=== PATIENT | male | born 1980 | race Caucasian/White ===

== ENCOUNTER 2016-09-04 10:00 | Emergency (ER) | payer BC ==
[~2016-09-04] VITALS: Ht 172.7 cm; Wt 88.5 kg
[~2016-09-04 10:00] MED LIST: ASPI-390 PO; PENI-82 PO; TRAM-10 PO
[2016-09-04 10:18] VITALS: TEMP 37; Ht 172.7 cm; Wt 88.5 kg
[2016-09-04] MEDS ORDERED: KETOROLAC TROMETHAMINE 60 MG/2 ML VIAL IM STA (10:28)
--- NOTE | 2016-09-04 11:33 | DIAGNOSTIC IMAGING REPORT ---
RIGHT RIBS UNILATERAL WITH PA CHEST CLINICAL HISTORY: Right rib pain following injury. COMPARISON STUDY: Chest radiograph November 25, 2014. FINDINGS: There is no pneumothorax or pleural effusion. Lungs are clear. Cardiac size is normal. Mediastinal contours are normal. There is a possible acute nondisplaced fracture of the lateral right fifth rib. IMPRESSION: No pneumothorax. Possible acute nondisplaced fracture of the lateral right fifth rib. Electronically signed by: Damian Damon M.D. 09/04/2016 11:31 AM Dictated Date/Time: 09/04/2016 11:28 AM
[2016-09-04] MEDS ORDERED: HYDR-5688 PO (11:39)
--- NOTE | 2016-09-04 11:39 | EMERGENCY ROOM VISIT NOTE ---
ED Visit Note First contact with patient: 10:23 CHIEF COMPLAINT: Right rib injury one hour ago HISTORY OF PRESENT ILLNESS: Patient is an otherwise healthy 36-year-old white male who presents to the emergency department for evaluation of right anterior lateral rib pain. He states that about an hour ago at his son's baseball game, he leaned over a fence, to tack picker a ball, and it felt and heard a pop in his right ribs. He has broken ribs previously and states that this feels similar. Pain is pinpoint in the right anterior lateral ribs, worse with movement, coughing or deep breathing. He rates his pain an 8/10. He did not take any medications, nor perform any interventions for his symptoms. Denies shortness of breath or coughing up blood. He denies any other injuries. REVIEW OF SYSTEMS: Review of systems as per HPI. All other systems reviewed were negative. At least 6 systems reviewed. PMH: Electronic medical records are reviewed and summarized as above/below. See Problem List. SOCIAL HISTORY: Patient lives at home. Smoker. PHYSICAL EXAM: Vital Signs: Reviewed Nurse's notes. CONSTITUTIONAL: Patient is an uncomfortable appearing 36-year-old white male who is awake and alert and in mild distress due to his rib discomfort. LUNGS: Clear to auscultation and breath sounds equal, no wheezes, rales, or rhonchi. HEART: Heart sounds are regular without murmurs, ectopy, gallop, or rub. CHEST: Examination of the right chest does not demonstrate any obvious deformity. No ecchymosis, swelling or fracture crepitus appreciated. He is tender over the anterior ribs in the midclavicular line. No flail segment or subcutaneous emphysema noted. ABDOMEN: Bowel sounds are present. Abdomen is soft, nontender and nondistended. No right upper quadrant pain. NEUROLOGICAL: Alert, oriented, and cooperative. Cranial nerves, sensation and strength grossly intact. Pupils round, equal, and react to light, EOMs are full. EMERGENCY DEPARTMENT COURSE: Patient was medicated with Toradol 60 mg IM. Rib x -rays were obtained. There is a possible acute nondisplaced fracture of the lateral right fifth rib. Conservative care measures were discussed. Patient has had rib fractures previously, and is familiar with expected management. He was given a small prescription for Beulah for pain. He was encouraged perform deep breathing exercises. I do not suspect pneumothorax, pleural effusion or solid organ injury. Patient was reviewed in the [facility] [address] Prescription Drug Monitoring Program, and there were no red flags noted. Medical Reconciliation: I attest that I have personally reviewed the patient's current medication list. Blood pressure screening: Patient was found to have slightly elevated blood pressure due to circumstances upon initial vital signs, repeat BP was normal. I do not believe that the patient requires hypertension monitoring. RIGHT RIBS UNILATERAL WITH PA CHEST CLINICAL HISTORY: Right rib pain following injury. COMPARISON STUDY: Chest radiograph November 25, 2014. FINDINGS: There is no pneumothorax or pleural effusion. Lungs are clear. Cardiac size is normal. Mediastinal contours are normal. There is a possible acute nondisplaced fracture of the lateral right fifth rib. IMPRESSION: No pneumothorax. Possible acute nondisplaced fracture of the lateral right fifth rib. Problem List Medical Problems: (1) Acute pharyngitis Status: Resolved (2) Back strain Status: Resolved (3) Back strain Status: Resolved (4) Back strain Status: Resolved (5) Dental caries Status: Chronic (6) Dentalgia Status: Resolved (7) Hand contusion Status: Resolved (8) Left rib fracture Status: Resolved (9) Left rib fracture Status: Resolved (10) Lumbago Status: Chronic (11) Migraine Status: Resolved (12) Migraine Status: Chronic (13) Odontalgia Status: Resolved (14) Radicular low back pain Status: Resolved Current/Historical Medications Scheduled PRN Hydrocodone/Acetaminophen 5MG/325MG (Beulah 5MG/325MG), 1-2 TABLETS PO Q4 PRN for Pain Allergies Coded Allergies: No Known Allergies (Unverified , 09/04/16) Vital Signs Date Time Temp Pulse Resp B/P (MAP) Pulse Ox O2 Delivery O2 Flow Rate FiO2 09/04/16 11:56 67 20 118/84 99 09/04/16 10:18 37.0 84 18 138/93 95 Room Air Medications Administered Medications (Trade) Dose Ordered Sig/Loni Route Start Time Stop Time Status Last Admin Dose Admin Ketorolac Tromethamine (Toradol Inj) 60 mg NOW STAT IM 09/04/16 10:28 09/04/16 10:29 DC 09/04/16 10:56 60 MG Departure Information Impression Primary Impression: Right rib fracture Prescriptions Hydrocodone/Acetaminophen 5MG/325MG (Beulah 5MG/325MG) Tab 1-2 TABLETS PO Q4 Y for Pain, #20 TAB For Initial Treatment Prov: Nohemi Sanz PA 09/04/16 Referrals No Doctor, Assigned (PCP) Patient Instructions My [facility] Additional Instructions Hydrocodone/Acetaminophen (Beulah) 5/325 mg: Take 1-2 pills every four hours for breakthrough pain. Avoid alcohol, operating machinery or dangerous equipment, working on ladders or roofs, DRIVING, or situations where being under the influence may be dangerous. It is recommended to use an [id number] stool softener such as Colace, 100mg twice daily while taking this medication to avoid constipation. Apply ice to ribs for swelling and pain. Do deep breathing and coughing exercises as instructed. Limit activities until ribs heal. Ibuprofen(Motrin, Advil) may be used for fever or pain. Use 600mg every six hours as needed. Take with food. Avoid using more than 2400mg in a 24 hour period. Do not use 2400mg per day for more than three consecutive days without physician direction. Prolonged inappropriate use can lead to stomach upset or ulcers. (AND/OR) Acetaminophen(Tylenol) may be used for fever or pain. Use 1000mg every six hours as needed. Avoid using more than 3000mg in a 24 hour period. Follow up with your family doctor as needed.
[2016-09-04 11:56] VITALS: BP 118/84; PULSE 67; O2SAT 99
== END 2016-09-04 11:57 | disposition home or self-care (01) ==
LOC: C.EDB 10:01 → C.EDD 11:57
DX: S22.31XA Fracture of one rib, right side, initial encounter for closed fracture (principal); X50.9XXA Other and unspecified overexertion or strenuous movements or postures, initial encounter; F17.200 Nicotine dependence, unspecified, uncomplicated

== ENCOUNTER 2016-12-18 23:25 | Emergency (ER) | payer OTHER, BC ==
[~2016-12-18] VITALS: Ht 172.7 cm; Wt 85.8 kg
[~2016-12-18 23:25] MED LIST changes: -ASPI-390 PO; +HYDR-5688 PO; -PENI-82 PO; -TRAM-10 PO
[2016-12-18 23:30] VITALS: TEMP 36.9; Ht 172.7 cm; Wt 85.8 kg
[2016-12-19 01:14] VITALS: BP 109/69; PULSE 61; O2SAT 97
--- NOTE | 2016-12-19 01:14 | EMERGENCY ROOM VISIT NOTE ---
History First contact with patient: 23:33 Chief Complaint: RIB PAIN Stated Complaint: BROKEN RIBS, HURT BAD, WORKERS COMP History of Present Illness The patient is a 36 year old male who presents to the Emergency Room with complaints of right-sided rib pain. The patient states that he was at work and leaned over a bar to reach for something when he felt a crunching sensation in the front of his ribs. He reports he has had pain since then. He rates his discomfort a 7/10. He reports he has had fractures in the ribs in the past. He denies any difficulty breathing. Review of Systems A complete 10 point review of systems was reviewed with the patient with pertinent positives and negatives as per history of present illness. All else were negative. Past Medical/Surgical History Medical Problems: (1) Acute pharyngitis (2) Back strain (3) Back strain (4) Back strain (5) Dental caries (6) Dentalgia (7) Hand contusion (8) Left rib fracture (9) Left rib fracture (10) Lumbago (11) Migraine (12) Migraine (13) Odontalgia (14) Radicular low back pain Family History No pertinent family history Social History Smoking Status: Current Every Day Smoker Alcohol Use: other Marital Status: in relationship Housing Status: lives with significant other Occupation Status: employed Current/Historical Medications No Active Prescriptions or Reported Meds Physical Exam Vital Signs Date Time Temp Pulse Resp B/P (MAP) Pulse Ox O2 Delivery O2 Flow Rate FiO2 12/19/16 01:14 61 18 109/69 97 Room Air 12/18/16 23:30 36.9 74 18 141/89 98 Room Air Physical Exam VITALS: Vitals are noted on the nurse's note and reviewed by myself. Vital signs stable. GENERAL: This is a 36-year-old male, in no acute distress, nondiaphoretic, well- developed well-nourished. SKIN: The skin was without erythema, edema, or bruising. HEART: Regular rate and rhythm without murmurs gallops or rubs. LUNGS: Clear to auscultation bilaterally without wheezes, rales or rhonchi. CHEST: There is reproducible tenderness over the anterior right lower ribs. No fracture crepitus. NEURO: Patient was alert and oriented to person place and time. Medical Decision & Procedures ER Provider Diagnostic Interpretation: CHEST W/ UNILATERAL RIBS: No obvious fractures identified. No pneumothorax or hemothorax. Medical Decision Differential diagnosis includes fracture, contusion, sprain, pneumothorax, hemothorax, among others. The patient is a 36-year-old male who presents today complaining of right-sided rib pain. There is no significant trauma to the area. X-rays were reviewed by myself and my attending and do not show any obvious fractures. Patient was informed of these findings. He was reassured and conservative measures were discussed. He verbalized understanding of my assessment and treatment plan was discharged home in good condition. Medication Reconcilliation Current Medication List: was personally reviewed by me Blood Pressure Screening Patient's blood pressure: Normal blood pressure Impression Primary Impression: Rib pain on right side Departure Information Dispostion Home / Self-Care Condition GOOD Prescriptions No Active Prescriptions or Reported Meds Referrals No Doctor, Assigned (PCP) Patient Instructions My [facility] Additional Instructions You have been treated in the Emergency Department for a Rib injury. X-ray did not show any obvious broken ribs. For pain control, you can use the following fqic-zwi-blmllkl medicines (if >12 yo): - Regular strength (325mg/tab) Tylenol (acetaminophen) 2 tabs every 4-6 hours as needed. Do not exceed 12 tablets in a 24 hour period. Avoid taking more than 4 grams (4000 mg) of Tylenol per day. This includes any other sources of acetaminophen you may take on a regular basis. - Regular strength (200 mg/tab) Advil (ibuprofen) 1-2 tabs every 4-6 hours as needed. Do not exceed a dose of 3200 mg per day. If this is an acute injury, ice can be applied to the area of pain for the first 3 days to help decrease pain and inflammation. After the first 3 days, a heating pad can be used over the area for continued soothing relief. To minimize your discomfort, you can hug a pillow while coughing or sneezing. Additionally, you should continue to force yourself to take nice, deep breaths. Full expansion of the lungs is necessary to prevent the accumulation of fluid in the lung tissue and development of pneumonia. You should schedule a follow-up appointment in 2-3 days with your Primary Care Provider for further evaluation and treatment of your pain. Return to the Emergency Department if your current symptoms worsen despite treatment course outlined above, or if you develop any of the following symptoms : intractable pain despite aforementioned treatment course, development of a wet cough, bloody cough, fever, chills, or increased shortness of breath.
--- NOTE | 2016-12-19 06:21 | DIAGNOSTIC IMAGING REPORT ---
R RIBS UNILATERAL WITH PA CHEST CLINICAL HISTORY: right rib pain, injury pain COMPARISON STUDY: None FINDINGS: Cortical fractures anterior fourth, seventh, ninth, and 10th ribs. Lungs are clear. No evidence pneumothorax. IMPRESSION: Nondisplaced cortical fractures anterior right fourth, seventh, ninth, and 10th ribs. No evidence pneumothorax. The above report was generated using voice recognition software. It may contain grammatical, syntax or spelling errors. Electronically signed by: Gustavo Mendez M.D. 12/19/2016 6:19 AM Dictated Date/Time: 12/19/2016 6:18 AM
== END 2016-12-19 01:18 | disposition home or self-care (01) ==
LOC: C.EDB 23:26 → C.EDA 12-19 01:18
DX: R07.81 Pleurodynia (principal); X50.0XXA Overexertion from strenuous movement or load, initial encounter; Y99.0 Civilian activity done for income or pay; Y92.89 Other specified places as the place of occurrence of the external cause; F17.210 Nicotine dependence, cigarettes, uncomplicated

== ENCOUNTER 2017-05-30 02:39 | Emergency (ER) | payer OTHER ==
[~2017-05-30] VITALS: Ht 172.7 cm; Wt 85.2 kg
[2017-05-30 02:42] VITALS: TEMP 37.4; Ht 172.7 cm; Wt 85.2 kg
[2017-05-30] MEDS ORDERED: IBUPROFEN 600 MG TAB PO STA (03:00)
--- NOTE | 2017-05-30 03:06 | EMERGENCY ROOM VISIT NOTE ---
ED Visit Note First contact with patient: 02:48 CHIEF COMPLAINT: Foot pain HISTORY OF PRESENT ILLNESS: This 37 yo patient presents to the emergency department complaining of swelling and pain in the right foot at rest and worse with weight bearing. The patient kicked down the door as his brother in law overdosed in the bathroom. The patient rates the pain as throbbing and 5/ 10. The patient has had nothing for relief of the pain. The patient is able to walk. No numbness or weakness. No ankle pain. There are no lacerations of the foot. The patient is able to move all of their toes and their ankle without pain. no previous fracture to this foot. REVIEW OF SYSTEMS: GENERAL: A 6 system review of systems was completed with positives and pertinent negatives in the HPI. ALLERGIES: None MEDICATIONS: Reviewed PMH: Medical Problems: (1) Acute pharyngitis Status: Resolved (2) Back strain Status: Resolved (3) Back strain Status: Resolved (4) Back strain Status: Resolved (5) Dental caries Status: Chronic (6) Dentalgia Status: Resolved (7) Hand contusion Status: Resolved (8) Left rib fracture Status: Resolved (9) Left rib fracture Status: Resolved (10) Lumbago Status: Chronic (11) Migraine Status: Resolved (12) Migraine Status: Chronic (13) Odontalgia Status: Resolved (14) Radicular low back pain Status: Resolved (15) Rib pain on right side Status: Resolved (16) Right rib fracture Status: Resolved SOCIAL HISTORY: No drug use PHYSICAL EXAM: Vital Signs: Reviewed Nurse's notes, vital signs mildly hypertensive. GENERAL: Pleasant male anxious appearing, in no acute distress, but appears in pain, well-developed, well-nourished. MUSCULOSKELATAL: There is no visual deformity of the right foot. There is no erythema no ecchymosis. There is no warmth. There is tenderness and swelling over the medial aspect of the right foot. There is no tenderness over the lateral or medial malleolus. No tenderness of the tib/fib. The range of motion of the right foot is not limited secondary to pain. There is no tenderness over the plantar fascia. The skin is intact and there are no lacerations or puncture wounds. Dorsalis pedis pulse 2+. Capillary refill less than 2 seconds. EMERGENCY DEPARTMENT COURSE: I examined the patient. An X-ray of the right foot was reviewed by myself and my attending and reveals no fracture. The patient was placed in a postop shoe and instructed on the use of crutches. Patient was advised if symptoms persist a follow-up with orthopedics in a few days or here in the ER sooner for severe pain, numbness, tingling, worsening signs or symptoms or as needed. The patient was discharged home in good condition. Blood pressure is elevated most likely situational. DIAGNOSIS: Right foot sprain TREATMENT: As below Problem List Medical Problems: (1) Acute pharyngitis Status: Resolved (2) Back strain Status: Resolved (3) Back strain Status: Resolved (4) Back strain Status: Resolved (5) Dental caries Status: Chronic (6) Dentalgia Status: Resolved (7) Hand contusion Status: Resolved (8) Left rib fracture Status: Resolved (9) Left rib fracture Status: Resolved (10) Lumbago Status: Chronic (11) Migraine Status: Resolved (12) Migraine Status: Chronic (13) Odontalgia Status: Resolved (14) Radicular low back pain Status: Resolved (15) Rib pain on right side Status: Resolved (16) Right rib fracture Status: Resolved Current/Historical Medications No Active Prescriptions or Reported Meds Allergies Coded Allergies: No Known Allergies (Unverified , 05/30/17) Vital Signs Date Time Temp Pulse Resp B/P (MAP) Pulse Ox O2 Delivery O2 Flow Rate FiO2 05/30/17 02:42 37.4 111 18 144/93 97 Room Air Departure Information Prescriptions No Active Prescriptions or Reported Meds Referrals No Doctor, Assigned (PCP) Patient Instructions My [facility]
[2017-05-30 03:20] VITALS: BP 141/91; PULSE 91; O2SAT 95
--- NOTE | 2017-05-30 06:46 | DIAGNOSTIC IMAGING REPORT ---
R FOOT MIN 3 VIEWS ROUTINE HISTORY: 37 years-old Male pain acute right foot pain status post kicking injury COMPARISON: Right heel radiographs 05/20/2017 TECHNIQUE: 3 views of the right foot FINDINGS: 3 mm corticated bone fragment is noted adjacent to the medial joint space of the first MTP joint suggesting accessory ossicle or remote avulsion fracture. Bipartite medial hallux sesamoid. Moderate sized plantar enthesophyte about the calcaneus. Mild dorsal spurring about the talus and navicular. No acute fracture, subluxation or opaque foreign body. No stress fracture. Mild medial forefoot soft tissue swelling. IMPRESSION: 1. Mild medial forefoot soft tissue swelling without acute fracture or subluxation. 2. Moderate plantar enthesophyte about the calcaneus. The above report was generated using voice recognition software. It may contain grammatical, syntax or spelling errors. Electronically signed by: Nolan Vasquez M.D. 05/30/2017 6:45 AM Dictated Date/Time: 05/30/2017 6:42 AM
== END 2017-05-30 03:29 | disposition home or self-care (01) ==
LOC: C.EDB 02:40
DX: S93.601A Unspecified sprain of right foot, initial encounter (principal); Z87.828 Personal history of other (healed) physical injury and trauma; W22.8XXA Striking against or struck by other objects, initial encounter

== ENCOUNTER 2021-05-16 12:47 | Observation (INO) ==
[2021-05-16] MEDS ORDERED: ONDANSETRON INJ 2 MG/ML 2 ML VIAL IV STA (13:22)
[2021-05-16] MEDS ORDERED: MoRPHine SULFATE 4 MG/ML 1 ML CARP\\VIAL IV STA ×3 (13:22→16:31)
[2021-05-16 13:42] LABS: Basophils # (auto) 0.04 K/uL (0-0.2); Basophils % (auto) 0.3 %; Eosinophils # (auto) 0.18 K/uL (0-0.5); Eosinophils % (auto) 1.3 %; Hematocrit (blood only) 47.5 % (42-52); Hemoglobin 16.6 g/dL (14.0-18.0); Immature Granulocytes # (auto) 0.03 K/uL (0.00-0.02); Immature Granulocytes % (auto) 0.2 %; Lymphocytes # (auto) 2.06 K/uL (1.2-3.4); Lymphocytes % (auto) 15.4 %; Mean Corpuscular Hemoglobin 33.2 pg (25-34); Mean Corpuscular Hgb Conc 34.9 g/dL (32-36); Mean Platelet Volume 9.7 fL (7.4-10.4); Monocytes # (auto) 1.06 K/uL (0.11-0.59); Monocytes % (auto) 7.9 %; Neutrophils # (auto) 10.04 K/uL (1.4-6.5); Neutrophils % (auto) 74.9 %; Platelet Count 419 K/uL (130-400); RDW Coefficient of Variation 12.5 % (11.5-14.5); White Blood Count 13.41 K/uL (4.8-10.8)
--- NOTE | 2021-05-16 13:48 | Emergency Department Note ---
History of Present Illness General Chief complaint: Leg Injury/Pain Stated complaint: LEG INJURY Time Seen by Provider: 05/16/21 13:06 History of Present Illness Maximum Pain Intensity: 9 This 41-year-old male presents to the ED by [facility] ambulance, for a right ankle injury. Patient states he was attempting to move a refrigerator onto his front porch. A snow squad had just come through. He states he slipped on the snow, and his foot went underneath the refrigerator bev. The refrigerator then fell onto his leg. He felt a snap and had immediate onset of pain. He states his foot was pointing the wrong way. He did reach down and reduce his own ankle. No prior history of significant ankle or foot injury. He denies any current numbness or tingling. He is currently splinted by EMS. He denies any pain at the knee, hip, or left leg. He last ate at 10 AM. Patient states he does have a history of opioid dependence and abuse. He would prefer as few narcotics as possible. His family accompanies him today. Home Medications Medication Instructions Recorded Confirmed Type No Known Home Medications 03/25/19 05/16/21 History aspirin 81 mg tablet,delayed 81 mg PO BID #60 tab 05/17/21 Rx release oxycodone-acetaminophen 5 mg-325 1 tab PO .Q4h-6h PRN #30 tab MDD 6 05/17/21 Rx mg tablet (Endocet) Allergies Allergy/AdvReac Type Severity Reaction Status Date / Time No Known Allergies Allergy Unverified 05/16/21 14:02 Past Med/Surg History Medical History Acute pharyngitis Back strain Dentalgia History of opioid abuse Left rib fracture Radicular low back pain Surgical History No pertinent past surgical history Family History Other No pertinent family history Social History (Updated 05/16/21 @ 13:48 by Yaya Santiago PA-C) Smoking Status: Former smoker Hx Alcohol Use: Yes Alcohol type: hard liquor Hx Substance Use: Yes Prescribed Medications: Former Misuse of Rx Meds Preferred Language: Thai Communication Ability: Effective Covered Buckle Assembler Required: No Beliefs That Will Affect Care: None Current Living Situation: Significant Other Other Information That Helps Us Care for You: No Feels Safe at Home: Yes Safety Concerns: Feels Safe At This Time Assistive Devices: None Review of Systems A total of 10 systems reviewed and were otherwise negative Physical Exam Vital Signs Vital Signs - 24 hr 05/16/21 14:00 05/16/21 14:30 05/16/21 15:00 Temperature Temperature Source Pulse Rate 114 H 110 H 113 H Pulse Rate [Apical] Pulse Rate from SpO2 Sensor 115 H 104 H 112 H Pulse Rhythm [Apical] Respiratory Rate 24 17 18 Respiratory Effort / Characteristics Respiratory Depth Respiratory Pattern Blood Pressure 167/103 H 156/107 H 154/103 H Blood Pressure [Right Arm] Blood Pressure Mean 124 123 120 Blood Pressure Mean [Right Arm] Blood Pressure Position [Right Arm] Pulse Oximetry 97 96 93 Oxygen Delivery Method Room Air Oxygen Flow Rate 05/16/21 15:30 05/16/21 16:00 05/16/21 16:30 Temperature Temperature Source Pulse Rate 110 H 106 H 115 H Pulse Rate [Apical] Pulse Rate from SpO2 Sensor 107 H 105 H 115 H Pulse Rhythm [Apical] Respiratory Rate 18 18 18 Respiratory Effort / Characteristics Respiratory Depth Respiratory Pattern Blood Pressure 156/94 H 147/107 H 155/108 H Blood Pressure [Right Arm] Blood Pressure Mean 114 120 123 Blood Pressure Mean [Right Arm] Blood Pressure Position [Right Arm] Pulse Oximetry 91 92 95 Oxygen Delivery Method Oxygen Flow Rate 05/16/21 17:00 05/16/21 17:53 05/16/21 21:35 Temperature 36.4 C L Temperature Source Temporal Artery Scan Pulse Rate 106 H 104 H Pulse Rate [Apical] 126 H Pulse Rate from SpO2 Sensor 109 H Pulse Rhythm [Apical] Regular Respiratory Rate 17 18 23 Respiratory Effort / Characteristics Non-Labored Spontaneous Respiratory Depth Normal Respiratory Pattern Regular Blood Pressure 165/103 H 157/105 H Blood Pressure [Right Arm] 150/98 H Blood Pressure Mean 123 Blood Pressure Mean [Right Arm] 115 Blood Pressure Position [Right Arm] Lying Pulse Oximetry 92 94 99 Oxygen Delivery Method Room Air Oxymask Oxygen Flow Rate 6 General: Well-developed, well-nourished, obese middle-aged white male, in no acute distress. Obvious discomfort. Laying on the bed. Alert and oriented. Skin: Warm and dry with good turgor. No rashes. Patient does have edema and ecchymosis present at his right ankle. He does have some puckering medially, where it appears he had some tenting on the skin. There are no open wounds. Heart: Heart RRR. No MGR. Peripheral pulses are 2+. Lungs: Lungs are clear to auscultation. No crackles rhonchi or wheezing. Good air movement. The patient is able to take a deep breath. Abdomen: Abdomen was inspected, auscultated, and palpated. Obese. Bowel sounds present x 4. Soft, nontender to palpation. No hepato-splenomegaly. No masses noted. No rebound. Musculoskeletal: Patient has no discomfort with palpation over his left leg, right hip, right thigh, or right knee. No pain with palpation over his proximal tibia/fibula. He does have pain with palpation of the distal fibula and tibia. His foot appears to have a slight malrotation externally. There is a visible offset on his tibia just above the medial malleolus. He has no discomfort with palpation over his hindfoot, midfoot, or forefoot. Intact motor function of the toes. Ankle range of motion was not attempted. Neurologic: Gross sensation is intact across the right leg and foot by soft touch. Peripheral pulses are 2+. Capillary fill is equal for each of the digits of the right foot. Procedures Free Text Procedures Patient is right ankle was splinted using web roll, Ortho-Glass, and Giles wraps. This was done under my direct supervision, with realignment of his ankle performed by me. Splinting was done with the assistance of the ED techs. Neurovascular status of the foot and toes was checked before and after splint placement and remained intact. Course Administered Medications Discontinued Medications Acetaminophen (Acetaminophen 500 Mg Tab) 1,000 mg PO Q8H [facility] Stop: 06/16/21 00:00 Last Admin: 05/17/21 09:12 Dose: 1,000 mg Documented by: [id number] Admin: 05/16/21 23:07 Dose: 1,000 mg Documented by: [id number] Aspirin (Aspirin 81 Mg Ectab) 81 mg PO BID [facility] Stop: 06/16/21 08:59 Last Admin: 05/17/21 09:12 Dose: 81 mg Documented by: [id number] Docusate Sodium (Docusate Sodium 100 Mg Cap) 100 mg PO BID [facility] Stop: 06/16/21 08:59 Last Admin: 05/17/21 09:12 Dose: 100 mg Documented by: [id number] Hydromorphone HCl (Hydromorphone Inj 0.5 Mg/0.5 Ml Syr) 0.5 mg IV Q4H PRN PRN Reason: Pain or Pre PT Stop: 05/30/21 22:29 Last Admin: 05/17/21 07:11 Dose: 0.5 mg Documented by: [id number] Admin: 05/17/21 03:17 Dose: 0.5 mg Documented by: [id number] Cefazolin Sodium (Ancef 3000mg) 72.5 mls @ 130 mls/hr IV PREOP [facility]AN[facility]; Protocol Stop: 05/16/21 23:59 Last Infusion: 05/16/21 19:10 Dose: 0 mls/hr Documented by: [id number] Admin: 05/16/21 19:05 Dose: 130 mls/hr Documented by: [id number] Sodium Chloride (Nss 1000ml) 1,000 mls @ 100 mls/hr IV .Q10H [facility] Stop: 05/17/21 06:00 Last Infusion: 05/17/21 07:20 Dose: 0 mls/hr Documented by: [id number] Admin: 05/16/21 23:02 Dose: 100 mls/hr Documented by: [id number] Cefazolin Sodium (Ancef 2000mg) 2,000 mg in 15 mls @ 3.75 mls/min IV Q8H [facility]; Protocol Stop: 05/17/21 11:48 Last Admin: 05/17/21 11:42 Dose: Not Given Documented by: [id number] Admin: 05/17/21 03:18 Dose: 3.75 mls/min Documented by: [id number] Morphine Sulfate (Morphine Sulfate 4 Mg/Ml 1 Ml Carp\Vial) 4 mg IV NOW STA Stop: 05/16/21 13:23 Last Admin: 05/16/21 13:33 Dose: 4 mg Documented by: [id number] Morphine Sulfate (Morphine Sulfate 4 Mg/Ml 1 Ml Carp\Vial) 4 mg IV NOW STA Stop: 05/16/21 14:45 Last Admin: 05/16/21 14:54 Dose: 4 mg Documented by: [id number] Morphine Sulfate (Morphine Sulfate 4 Mg/Ml 1 Ml Carp\Vial) 4 mg IV NOW STA Stop: 05/16/21 16:32 Last Admin: 05/16/21 16:36 Dose: 4 mg Documented by: [id number] Multivitamins (Multivitamin Tab) 1 tab PO QAM [facility] Stop: 06/16/21 08:59 Last Admin: 05/17/21 09:12 Dose: 1 tab Documented by: [id number] Ondansetron HCl (Ondansetron Inj 2 Mg/Ml 2 Ml Vial) 4 mg IV NOW STA Stop: 05/16/21 13:23 Last Admin: 05/16/21 13:33 Dose: 4 mg Documented by: [id number] Ondansetron HCl (Ondansetron Inj 2 Mg/Ml 2 Ml Vial) 4 mg IV ONCE PRN PRN Reason: PACU Use Only-Nausea/Vomiting Stop: 05/17/21 02:10 Last Admin: 05/16/21 21:41 Dose: 4 mg Documented by: [id number] Oxycodone HCl (Oxycodone Hcl Ir 5 Mg Tab (Immediate Release)) 5 - 10 mg PO Q4H PRN PRN Reason: Pain or Pre PT Stop: 05/30/21 22:29 Last Admin: 05/17/21 09:11 Dose: 10 mg Documented by: [id number] Admin: 05/17/21 05:21 Dose: 10 mg Documented by: [id number] Admin: 05/17/21 01:09 Dose: 10 mg Documented by: [id number] Medical Decision Making Differential Diagnosis Ankle fracture, ankle dislocation, ligament disruption, contusion, lower leg fracture, knee ligament disruption Medical Records Attestation: I reviewed the patient's medical records. Home Medications Current Medication List: was personally reviewed by me Laboratory Data CBC and PRP were obtained. Mild elevation in white count at 13.4. PRP is entirely unremarkable. Covid test obtained today is negative. Result diagrams: 05/17/21 07:35 05/17/21 07:35 Lab Results 05/16/21 05/16/21 05/16/21 Range/Units 13:28 13:30 13:30 WBC 13.41 H (4.8-10.8) K/uL RBC 5.00 (4.7-6.1) M/uL Hgb 16.6 (14.0-18.0) g/dL Hct 47.5 (42-52) % MCV 95.0 (80-100) fL MCH 33.2 (25-34) pg MCHC 34.9 (32-36) g/dL RDW Std Deviation 43.0 (36.4-46.3) fL RDW Coeff of Edelmira 12.5 (11.5-14.5) % Plt Count 419 H (130-400) K/uL MPV 9.7 (7.4-10.4) fL Immature Gran % (Auto) 0.2 % Neut % (Auto) 74.9 % Lymph % (Auto) 15.4 % Amador % (Auto) 7.9 % Eos % (Auto) 1.3 % Baso % (Auto) 0.3 % Neut # (Auto) 10.04 H (1.4-6.5) K/uL Lymph # (Auto) 2.06 (1.2-3.4) K/uL Amador # (Auto) 1.06 H (0.11-0.59) K/uL Eos # (Auto) 0.18 (0-0.5) K/uL Baso # (Auto) 0.04 (0-0.2) K/uL Immature Gran # (Auto) 0.03 H (0.00-0.02) K/uL Sodium 138 (136-145) mmol/L Potassium 4.3 (3.5-5.1) mmol/L Chloride 106 (98-107) mmol/L Carbon Dioxide 25 (21-32) mmol/L Anion Gap 7 (3-11) BUN 20 (6-23) mg/dl Creatinine 1.14 (0.6-1.4) mg/dl Est Cr Clr Drug Dosing 102.6 ml/min Est GFR ( Amer) 93.4 ml/min Est GFR (Non-Af Amer) 80.6 ml/min BUN/Creatinine Ratio 17.5 (10-20) Glucose 94 (70-99(Fasting)) mg/dl Calcium 9.1 (8.5-10.1) mg/dl SARS-CoV-2, RNA, NAAT NEGATIVE (NEGATIVE) Imaging Data My Impression: Radiographic imaging obtained today of the right lower leg and right ankle were read by radiology and reviewed by me. He has comminuted complex fractures of the distal tibia and fibula. There is slight angulation. Mild displacement. No evidence of Maisonneuve fracture. No open fracture is noted. Radiologist's Impression: Ankle X-Ray 05/16/21 13:20 RIGHT ANKLE 2 VIEWS; RIGHT TIBIA AND FIBULA 2 VIEWS CLINICAL HISTORY: Right ankle injury and deformity. FINDINGS: Crosstable AP and lateral portable views of the right ankle with AP and crosstable lateral portable views of the right tibia and fibula are obtained. No prior studies are available for comparison at the time of dictation. The skeletal structures are well mineralized. There is a comminuted fracture of the distal fibular shaft with apex medial angulation and displaced fragments. There is overriding of fragments. Additionally, there is a complex comminuted spiral fracture of the distal tibial shaft. There is apex medial angulation, with significant overlying soft tissue edema. Fracture does not extend to the ankle joint. The ankle mortise is intact. The proximal tibia and fibula are maintained. The knee joint is grossly preserved. Os trigonum is incidentally noted. There is a large plantar calcaneal enthesophyte. IMPRESSION: Comminuted, displaced, and angulated fractures of the distal tibial and fibular shafts as detailed above. Electronically signed by: Ernst Millard M.D. 05/16/2021 1:55 PM Tibia/Fibula X-Ray 05/16/21 13:20 RIGHT ANKLE 2 VIEWS; RIGHT TIBIA AND FIBULA 2 VIEWS CLINICAL HISTORY: Right ankle injury and deformity. FINDINGS: Crosstable AP and lateral portable views of the right ankle with AP and crosstable lateral portable views of the right tibia and fibula are obtained. No prior studies are available for comparison at the time of dictation. The skeletal structures are well mineralized. There is a comminuted fracture of the distal fibular shaft with apex medial angulation and displaced fragments. There is overriding of fragments. Additionally, there is a complex comminuted spiral fracture of the distal tibial shaft. There is apex medial angulation, with significant overlying soft tissue edema. Fracture does not extend to the ankle joint. The ankle mortise is intact. The proximal tibia and fibula are maintained. The knee joint is grossly preserved. Os trigonum is incidentally noted. There is a large plantar calcaneal enthesophyte. IMPRESSION: Comminuted, displaced, and angulated fractures of the distal tibial and fibular shafts as detailed above. Electronically signed by: Ernst Millard M.D. 05/16/2021 1:55 PM Blood Pressure Blood Pressure Findings: Elevated blood pressure Blood Pressure Disposition: Referred to patients primary care provider Additional Comments: Patient states he has known hypertension. He consciously has not started any antihypertensives. We did have extensive discussion about this. I strongly recommended that he obtain a PCP and start taking oral antihypertensives. MDM Narrative Patient was evaluated in room B2. Conservative care measures were discussed. IV was already established. Labs were obtained. They were unremarkable. After extensive discussion about his opioid addiction in the past, he did agree to mo rphine 4 mg IV and Zofran 4 mg IV for pain control. He did receive ketamine in the ambulance, but it was not effective at pain control. Radiographic imaging of the right leg was obtained. It shows the complex comminuted fractures of both lower bones. [facility] Consultation was obtained from Dr. Lowe. Patient remained n.p.o. while in the ED. He did receive an additional dose of morphine 4 mg IV x2 for pain control. Splinting was performed. Patient will be taken to the OR tonight for definitive fixation. Please see Dr. Lowe's note for final management. Impression & Plan Fracture tibia/fibula Patient was placed in a well-padded coaptation and posterior lower leg splint by me, with the assistance of additional ED techs. Neurovascular status was checked before and after splint placement. Alignment of the of the ankle was found to be visibly improved after splinting. Patient will be taken to the OR tonight for definitive fixation/stabilization. Discharge Plan Visit Data Chief Complaint: Leg Injury/Pain Stated Complaint: LEG INJURY ED Provider: Iván Garcia ED Midlevel Provider: Yaya Santiago Discharge Problem: Fracture tibia/fibula Patient Disposition: Admitted As Inpatient Discharge Instructions Interventions: ED Discharge Assessment Last Done: 05/16/21 17:53 Discharge Problem: Fracture tibia/fibula Qualifiers: Encounter type: initial encounter Fracture type: closed Laterality: right Qualified Code(s): S82.201A - Unspecified fracture of shaft of right tibia, initial encounter for closed fracture
--- NOTE | 2021-05-16 13:56 | XRay Report ---
RIGHT ANKLE 2 VIEWS; RIGHT TIBIA AND FIBULA 2 VIEWS CLINICAL HISTORY: Right ankle injury and deformity. FINDINGS: Crosstable AP and lateral portable views of the right ankle with AP and crosstable lateral portable views of the right tibia and fibula are obtained. No prior studies are available for compari son at the time of dictation. The skeletal structures are well mineralized. There is a comminuted fra cture of the distal fibular shaft with apex medial angulation and displaced fragments. There is overr iding of fragments. Additionally, there is a complex comminuted spiral fracture of the distal tibial shaft. There is apex medial angulation, with significant overlying soft tissue edema. Fracture does n ot extend to the ankle joint. The ankle mortise is intact. The proximal tibia and fibula are maintain ed. The knee joint is grossly preserved. Os trigonum is incidentally noted. There is a large plantar calcaneal enthesophyte. IMPRESSION: Comminuted, displaced, and angulated fractures of the distal tibial and fibular shafts as detailed above. Electronically signed by: Ernst Millard M.D. 05/16/2021 1:55 PM
[2021-05-16 14:03] LABS: BUN Creatinine Ratio 17.5 (10-20); Calcium 9.1 mg/dl (8.5-10.1); Creatinine Clr Calc Pharmacy 102.6 ml/min; Est GFR (African American) 93.4 ml/min; Est GFR (Non-African American) 80.6 ml/min; Potassium 4.3 mmol/L (3.5-5.1)
--- NOTE | 2021-05-16 16:36 | Anesthesiology Consultation ---
Date of Service May 16, 2021 Assessment & Plan (1) Encounter for pre-operative examination: Chart Review Chart Review: Acceptable Risk for Surgery Consults Requested none ASA ASA2 Proposed Anesthesia Anesthesia Type: General Regional Regional Laterality: Right Site: Popliteal and Adductor Canal Risk / Benefits Reviewed With: PT / POA / Parent / Guardian, Accepts Plan and Informed Consent Obtained History Surgery Operation Date: 05/16/21 18:00 Proposed Procedures p Open Reduction Internal Fixation Ankle(Right) - Robe Lowe DO Height/Weight Height: 5 ft 7 in Weight: 109.2 kg Allergies Allergy/AdvReac Type Severity Reaction Status Date / Time No Known Allergies Allergy Unverified 05/16/21 14:02 Medications Home Medications Medication Instructions Recorded Confirmed Last Taken No Known Home Medications 03/25/19 05/16/21 Unknown NPO Date Last Intake of Fluids: 05/16/21 Time Last Intake of Fluids: 10:00 Date Last Intake of Solids: 05/16/21 Time Last Intake of Solids: 10:00 Past Medical History Medical History Acute pharyngitis Back strain Dentalgia History of opioid abuse Left rib fracture Radicular low back pain Exercise / Class Metabolic Activity II 4-5 Yardwork/Stairs/Walk up hill Past Family History Family History Other No pertinent family history Past Surgical History Surgical History No pertinent past surgical history Past Anesthesia History No Hx of Anesthesia Complications and No Family Hx of Anesthesia Complications History of PONV No Hx of PONV and No Hx of Motion Sickness Social History Smoking Status: Never smoker Hx Substance Use: Yes Physical Exam Vital Signs Last Vital Signs Temp 97.9 F 05/16/21 12:55 Pulse 106 H 05/16/21 16:00 Resp 18 05/16/21 16:00 BP 147/107 H 05/16/21 16:00 Pulse Ox 92 05/16/21 16:00 ENMT Mouth: no dentition abnormality Thyromental Distance: > or= 3.5 Finger Breadths Mallampati Class: II Neck normal visual inspection Respiratory normal respiratory effort Auscultation: lungs clear to auscultation bilaterally Cardiovascular Rate/Rhythm: regular rate and regular rhythm Testing Laboratory Results 05/16/21 13:30 05/16/21 13:30
--- NOTE | 2021-05-16 16:54 | History & Physical Report ---
Date of Service May 16, 2021 Assessment & Plan (1) Fracture tibia/fibula: Plan: Patient has displaced a comminuted distal tibia and fibula fractures. Discussed treatment options and surgical intervention is indicated. Risks, benefits and alternatives to surgery including but not limited to infection, DVT, pain, stiffness, need for revision surgery, damage to blood vessels, compartment syndrome, damage to nerves, PE, , were discussed with the patient and they wish to proceed. Plan on ORIF right distal tibia and fibula fractures at [facility] today with Dr. Lowe. We will likely plan on admitting him overnight for observation. We will plan on ASA 81 mg twice daily for 1 month postop for DVT prophylaxis. All questions answered. History of Present Illness Chief Complaint: Right lower leg injury Primary Care Provider: NO PCP 41-year-old male with no significant past medical history was in his usual state of health. 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 He slipped on the snow and slid under the bev and the fracture fell on his leg. He felt like snap and immediate onset of pain. He has brought to the emergency room by ambulance. X-rays demonstrated comminuted and displaced distal tibia and fibula fractures. He was placed in a posterior splint with a stirrup by the emergency room. We are asked to see the patient for surgical intervention. Patient denies headaches, sweats, fevers, chills, double vision, blurred vision, cough, sore throat, dysphagia, chest pain, sob, wheezing, n/v/d/c, numbness, tingling, fatigue, urinary symptoms, mood disorders. ROS positive for right ankle pain. Allergies Allergy/AdvReac Type Severity Reaction Status Date / Time No Known Allergies Allergy Unverified 05/16/21 14:02 Home Medications Medication Instructions Recorded Confirmed Type No Known Home Medications 03/25/19 05/16/21 History Past Med/Surg History Medical History Acute pharyngitis Back strain Dentalgia History of opioid abuse Left rib fracture Radicular low back pain Surgical History No pertinent past surgical history Family History Other No pertinent family history Social History (Updated 05/16/21 @ 13:48 by Yaya Santiago PA-C) Smoking Status: Never smoker Hx Substance Use: Yes Prescribed Medications: Former Misuse of Rx Meds Preferred Language: Turkish Feels Safe at Home: Yes Review of Systems Review of Systems: All systems reviewed & are unremarkable except as noted in HPI & below Physical Exam Constitutional: WD/WN, vitals as above Respiratory: normal respiratory effort; no respiratory distress Cardiovascular: Rate/Rhythm: regular rate and regular rhythm Musculoskeletal: Right ankle is in Ortho-Glass splints. Splint is clean dry and intact. Toes are mobile. Sensation distally neurovascular status intact. Cap refill less than 3 seconds distal pedal pulses palpable. No tenderness about the knee. Skin: no rashes, warm and dry Neurologic: normal touch/pain/proprioception Speech / Cognition: + abnormal speech Psychiatric: A+Ox3, euthymic affect Results & Data Results & Data ([facility]) Vital Signs (Past 12 Hours) Vital Signs Temp Pulse Pulse Resp BP BP Pulse Ox 05/16/21 16:00 106 H 18 147/107 H 92 05/16/21 15:30 110 H 18 156/94 H 91 05/16/21 15:00 113 H 18 154/103 H 93 05/16/21 14:30 110 H 17 156/107 H 96 05/16/21 14:00 114 H 24 167/103 H 97 05/16/21 13:34 104 H 20 163/96 H 96 05/16/21 13:30 103 H 18 163/96 H 97 05/16/21 13:00 110 H 20 163/104 H 97 05/16/21 12:55 36.6 C 118 H 20 176/110 H 96 05/16/21 12:54 109 H 15 97 Laboratory Results Lab Results 05/16/21 05/16/21 05/16/21 Range/Units 13:28 13:30 13:30 WBC 13.41 H (4.8-10.8) K/uL RBC 5.00 (4.7-6.1) M/uL Hgb 16.6 (14.0-18.0) g/dL Hct 47.5 (42-52) % MCV 95.0 (80-100) fL MCH 33.2 (25-34) pg MCHC 34.9 (32-36) g/dL RDW Std Deviation 43.0 (36.4-46.3) fL RDW Coeff of Edelmira 12.5 (11.5-14.5) % Plt Count 419 H (130-400) K/uL MPV 9.7 (7.4-10.4) fL Immature Gran % (Auto) 0.2 % Neut % (Auto) 74.9 % Lymph % (Auto) 15.4 % Pike % (Auto) 7.9 % Eos % (Auto) 1.3 % Baso % (Auto) 0.3 % Neut # (Auto) 10.04 H (1.4-6.5) K/uL Lymph # (Auto) 2.06 (1.2-3.4) K/uL Pike # (Auto) 1.06 H (0.11-0.59) K/uL Eos # (Auto) 0.18 (0-0.5) K/uL Baso # (Auto) 0.04 (0-0.2) K/uL Immature Gran # (Auto) 0.03 H (0.00-0.02) K/uL Sodium 138 (136-145) mmol/L Potassium 4.3 (3.5-5.1) mmol/L Chloride 106 (98-107) mmol/L Carbon Dioxide 25 (21-32) mmol/L Anion Gap 7 (3-11) BUN 20 (6-23) mg/dl Creatinine 1.14 (0.6-1.4) mg/dl Est Cr Clr Drug Dosing 102.6 ml/min Est GFR ( Amer) 93.4 ml/min Est GFR (Non-Af Amer) 80.6 ml/min BUN/Creatinine Ratio 17.5 (10-20) Glucose 94 (70-99(Fasting)) mg/dl Calcium 9.1 (8.5-10.1) mg/dl SARS-CoV-2, RNA, NAAT NEGATIVE (NEGATIVE) Diagnostic Findings RIGHT ANKLE 2 VIEWS; RIGHT TIBIA AND FIBULA 2 VIEWS CLINICAL HISTORY: Right ankle injury and deformity. FINDINGS: Crosstable AP and lateral portable views of the right ankle with AP and crosstable lateral portable views of the right tibia and fibula are obtained. No prior studies are available for comparison at the time of dictation. The skeletal structures are well mineralized. There is a comminuted fracture of the distal fibular shaft with apex medial angulation and displaced fragments. There is overriding of fragments. Additionally, there is a complex comminuted spiral fracture of the distal tibial shaft. There is apex medial angulation, with significant overlying soft tissue edema. Fracture does not extend to the ankle joint. The ankle mortise is intact. The proximal tibia and fibula are maintained. The knee joint is grossly preserved. Os trigonum is incidentally noted. There is a large plantar calcaneal enthesophyte. IMPRESSION: Comminuted, displaced, and angulated fractures of the distal tibial and fibular shafts as detailed above. (1) Fracture tibia/fibula Encounter type: initial encounter Fracture type: closed Laterality: right Qualified Code(s): S82.201A - Unspecified fracture of shaft of right tibia, initial encounter for closed fracture; S82.401A - Unspecified fracture of shaft of right fibula, initial encounter for closed fracture
[2021-05-16] MEDS ORDERED: fentaNYL citrate 100 MCG/2 ML VIAL ONE ×2 (17:56→19:14)
[2021-05-16] MEDS ORDERED: MIDAZOLAM HCL 1 MG/ML 2ML VIAL ONE (17:56)
[2021-05-16] MEDS ORDERED: PROPOFOL IV EMULSION 10 MG/ML 20 ML VIAL IV ONE (17:56)
[2021-05-16] MEDS ORDERED: ROPIVACAINE 0.5% 5 MG/ML 30 ML VIAL ONE (18:07)
[2021-05-16] MEDS ORDERED: ONDANSETRON INJ 2 MG/ML 2 ML VIAL IV PRN ×3 (18:10→22:30)
[2021-05-16] MEDS ORDERED: ATROPINE SULFATE 0.1 MG/ML 10ML SYR IV PRN ×2 (18:10→19:13)
[2021-05-16] MEDS ORDERED: fentaNYL citrate 100 MCG/2 ML VIAL IV PRN ×2 (18:10→19:13)
[2021-05-16] MEDS ORDERED: ePHEDrine sulfate 50 MG/ML AMP IV PRN ×2 (18:10→19:13)
[2021-05-16] MEDS ORDERED: ACETAMINOPHEN 1000 MG/100 ML IV IV ONE (18:12)
--- NOTE | 2021-05-16 18:20 | History & Physical Bridge Note ---
Date of Service May 16, 2021 History & Physical Bridge Note I have examined the patient, reviewed the History & Physical and in the interval since the performance of the History & Physical I have noted the following changes of clinical significance: no changes noted
[2021-05-16] MEDS ORDERED: HYDROmorphone INJ 1 MG/ML SYRINGE IV PRN (19:13)
[2021-05-16] MEDS ORDERED: CEFAZOLIN IV ONE (19:15)
[2021-05-16] MEDS ORDERED: SODIUM CHLORIDE 0.9% IV ONE (19:15)
[2021-05-16] MEDS ORDERED: ONDANSETRON INJ 2 MG/ML 2 ML VIAL ONE (20:46)
[2021-05-16] MEDS ORDERED: ceFAZolin 330 MG/ML 1 GM VIAL ONE (20:46)
--- NOTE | 2021-05-16 21:19 | Fluoroscopy Report ---
INTRAOPERATIVE RADIOGRAPHS CLINICAL HISTORY: Open reduction and internal fixation of the right ankle. Fluoroscopy time: 71 seconds. FINDINGS: 4 spot fluoroscopic views of the right ankle are correlated with ankle radiographs performe d earlier the same day 05/16/2021. There has been buttress plate fixation of comminuted fractures of t he distal tibial and fibular shafts. Numerous cortical lag screws transfix the buttress plates. Near- anatomic alignment has been restored. The orthopedic hardware appears intact. Overlying soft tissue e rubio is noted. IMPRESSION: Intraoperative images from open reduction and internal fixation of right ankle fractures as above. Electronically signed by: Ernst Millard M.D. 05/16/2021 9:17 PM
--- NOTE | 2021-05-16 21:20 | Post Operative Brief Note ---
Immediate Post Op Note v1 Date of Surgery May 16, 2021 Pre & Post Diagnosis Operation Date: 05/16/21 18:00 Pre-Op Diagnosis: Right closed displaced comminuted distal one third tibia and fibula fractures, crush injury right lower extremity Post-Op Diagnosis: Right closed displaced comminuted distal one third tibia and fibula fractures, crush injury right lower extremity I identified the patient and participated in the time-out.: Yes Procedure Operation Date: 05/16/21 18:00 Actual Procedures p Open Reduction Internal Fixation closed displaced comminuted distal one third tibia and fibula fractures(Right) - Robe Lowe DO Surgeon Robe Lowe DO Real Estate Subagent Rony Bhakta PA-C Estimated Blood Loss 20 Findings Consistent with Post-Op Diagnosis Anesthesia Type General Regional Complications none Disposition Accompanied Patient To Recovery: No
--- NOTE | 2021-05-16 21:55 | Anesthesiology Progress Note ---
Date of Service May 16, 2021 Anesthesia Post Procedure Vital Signs Vital Signs: Temp Pulse Pulse Resp BP BP Pulse Ox 05/16/21 21:45 115 H 25 H 152/91 H 98 05/16/21 21:35 36.4 C L 126 H 23 150/98 H 99 05/16/21 17:53 104 H 18 157/105 H 94 05/16/21 17:00 106 H 17 165/103 H 92 05/16/21 16:30 115 H 18 155/108 H 95 05/16/21 16:00 106 H 18 147/107 H 92 05/16/21 15:30 110 H 18 156/94 H 91 05/16/21 15:00 113 H 18 154/103 H 93 05/16/21 14:30 110 H 17 156/107 H 96 05/16/21 14:00 114 H 24 167/103 H 97 05/16/21 13:34 104 H 20 163/96 H 96 05/16/21 13:30 103 H 18 163/96 H 97 05/16/21 13:00 110 H 20 163/104 H 97 05/16/21 12:55 36.6 C 118 H 20 176/110 H 96 05/16/21 12:54 109 H 15 97 Pain Intensity Right Leg: Pain Intensity: 9 Transfer of Care Handoff Completed per policy Notes Mental Status: alert / awake / arousable and participated in evaluation Patient Amnestic to Procedure: Yes Nausea / Vomiting: adequately controlled Pain: adequately controlled Airway Patency, RR, SpO2: stable & adequate BP & HR: stable & adequate Hydration State: stable & adequate Anesthetic Complications: no major complications apparent and Pt Satisfied with anesthetic care
[2021-05-16] MEDS ORDERED: NALOXONE HCL 0.4 MG/1 ML VIAL/CARP IV PRN (22:30)
[2021-05-16] MEDS ORDERED: SODIUM CHLORIDE 0.9% 1000ML 1,000 ML IV SCH (22:30)
[2021-05-16] MEDS ORDERED: MAGNESIUM HYDROXIDE SUSP 30 ML UDC PO PRN (22:30)
[2021-05-16] MEDS ORDERED: METOCLOPRAMIDE HCL INJ 5 MG/ML 2 ML VIAL IV PRN (22:30)
[2021-05-16] MEDS ORDERED: bisacodyL 10 MG SUPP PR PRN (22:30)
--- NOTE | 2021-05-16 22:30 | Operative Report (OR) ---
DATE OF PROCEDURE: 05/16/2021. PREOPERATIVE DIAGNOSES: 1. Right displaced comminuted closed distal one-third tibia and fibula fractures. 2. Crush injury, right lower extremity. POSTOPERATIVE DIAGNOSES: 1. Right closed displaced comminuted distal one-third tibia and fibula fractures. 2. Crush injury, right lower extremity. PROCEDURE: 1. Open reduction and internal fixation, closed, displaced, comminuted distal one-third tibia and fi bula fractures, right lower extremity. 2. Operative management, crush injury. SURGEON: Robe Lowe DO EMBOSSING PRESS OPERATOR MOLDED GOODS: Rony Dailey PA-C who was present for patient positioning, sterile prep and drape, management of retractors and instruments. He was present through the critical portions of the case in cluding wound closure, application of sterile dressing and transport of the patient to recovery. ANESTHESIA: General, regional. SPECIMENS: None. DRAINS: None. COMPLICATIONS: None. BLOOD LOSS: 20 mL. PERTINENT HISTORY: This is a 41-year-old gentleman who was assisting another person moving a [employer] rator. There was an area where he slipped and the refrigerator fell on his right lower extremity cru shing it. It was a closed injury. He is unable to ambulate. Transported to [facility] where he was evaluated by the Emergency Department. Radiographs were obtained. He was noted to have crush injury with displaced comminuted distal one-third tibia and fibula fracture and orthopedic s was consulted. The patient was then scheduled for surgery as indicated. All potential risks, benefits, complications, alternatives, rehab potential for incomplete relief of symptoms, need for further surgery, DVT, PE, , persistent pain, swelling, scarring, weakness, ne urovascular injury, wound complications, hardware failure, nonunion, malunion, bone fracture were dis cussed with the patient. The patient decided to proceed with the procedure as indicated. DESCRIPTION OF PROCEDURE: The patient had a popliteal block performed in the preoperative holding ar raina, then taken to the operative suite and placed supine on the operating table. After review of cons ent and identification of proper site, the patient was anesthetized, LMA was placed. Tourniquet was placed high on the right thigh over cast padding. Right lower extremity was then sterilely prepped a nd draped in the usual sterile fashion, elevated and exsanguinated with an Esmarch bandage and tourni quet inflated to 350 mmHg. Next, after surgical timeout was performed, a lateral incision was made over the fibula. The incisio n was deepened through skin and subcutaneous tissue. Meticulous hemostasis was achieved with electro cautery. Full thickness skin flaps were elevated with tenotomy scissors and forceps. Weitlaner retra ctors were applied. The deep peroneal nerve branch was retracted and protected. The torn periosteum over the fracture site was identified and incised, elevated and protected when possible. The severe ly comminuted distal one-third fibular fracture was then copiously irrigated with sterile saline unti l clear and immature clot was then removed from the site. The fracture fragments were then put toget her with care using a dental pick and approximately 5-6 bone clamps under live fluoroscopic assistanc e. Next, lag screws were applied in 3 separate sites stabilizing the fracture provisionally and then a 12-hole one-third tubular locking Synthes plate was then applied under live fluoroscopic assistanc e achieving near anatomic reduction and fixation. This stabilized the fibula and the lateral column which then secondarily stabilized the medial column and the tibia and then a 15-blade scalpel was use d to make an incision centered over the medial malleolus extending proximally for approximately 3 to 4 cm. The incision was deepened through skin and subcutaneous tissue. Meticulous hemostasis was ach ieved with electrocautery. Full thickness skin flaps were developed and elevated and retracted and p rotected with Glenn rakes. Next, a careful dissection was performed with Metzenbaum scissors proximal ly to the level of the medial malleolus and then the periosteal sleeve was elevated and then Digna sebastian vator was placed in the periosteal sleeve elevating the periosteum to the midshaft of the tibia follo wed by use of a minimally invasive Synthes locking periarticular medial plate jig, which was then use d to slide a 12-hole locking periarticular medial plate under the periosteum under live fluoroscopic assistance. The plate was pinned proximally locking into the plate and the midshaft anterior to post erior of the tibia and the distal portion was then fixed in place under live fluoroscopic assistance using a locking screw placed through on the distal locking holes. Next, fixation alignment and contour was then confirmed with C-arm fluoroscopy and then using multipl e stab incisions with a 15-blade scalpel using percutaneous techniques, the fracture stabilized proxi mal and distal. The middle comminution and large butterfly fragment was then stabilized using a smal l stab incision with a 15-blade scalpel over the medial aspect of the tibia and the exposed portion o f the tibia laterally was then used to compress and stabilize the large butterfly fragment of the tib ia in a near anatomic alignment. Next, multiple locking bone screws were placed from medial to later al using percutaneous locking techniques under live fluoroscopic assistance. Once the plate was stab ilized, the minimally invasive jig was then removed from the tibial plate. All incision sites were c opiously irrigated with sterile saline until clear. Final radiographs were obtained, noting near edie tomic alignment and fixation on both the medial and lateral plates and screws. Then the lateral inci marybeth was closed with deep 2-0 Vicryl closed over the plate. The dermis was closed using buried inter rupted 3-0 Vicryl. The lateral incision was closed using 4-0 nylon. Next, the medial incision over the distal medial tibia was closed using buried interrupted 2-0 Vicryl. The dermis was closed using buried interrupted 3-0 Vicryl. Skin was closed using 4-0 nylon. The percutaneous stab incisions pro ximally were closed using multiple skin salma. A sterile compressive dressing was applied followed by placement of a posterior Ortho-Glass splint overwrapped in an Giles wrap. The foot was held in sherry tral dorsiflexion. The tourniquet was released. Normal hyperemic response returned to the toes. No rmal pulses, 2/4, dorsalis pedis and posterior tibial pulses. The patient was then awakened and take n to recovery in stable condition. Job ID: [id number]
[2021-05-16] MEDS: ACETAMINOPHEN 500 MG TAB PO SCH (23:07)
[2021-05-17] MEDS: oxyCODONE HCL IR 5 MG TAB (IMMEDIATE RELEASE) PO PRN ×3 (01:09→09:11)
[2021-05-17] MEDS: HYDROmorphone INJ 0.5 MG/0.5 ML SYR IV PRN ×2 (03:17→07:11)
[2021-05-17] MEDS: ceFAZolin 2000MG 2,000 MG/15 ML SYR IV SCH ×2 (03:18→11:42)
--- NOTE | 2021-05-17 07:48 | Orthopedic Progress Note ---
Date of Service May 17, 2021 Assessment & Plan (1) Fracture tibia/fibula: Plan: Postop day #1 right tib-fib fracture ORIF. -PT/OT: Nonweightbearing right lower extremity -DVT prophylaxis: SCDs, ASA 81 mg twice daily -Pain management as written -A.m. labs pending -Discharge planning: Plan on discharge home later today. Admission and Anticipated Discharge Date Admission Date: May 16, 2021 Subjective Patient is postop day 1. He is resting in bed comfortably. Pain is much better today than it was yesterday. He has no other complaints. Denies any chest pain, shortness of breath, dizziness, nausea/vomiting/diarrhea. Review of Systems Review of Systems: All systems reviewed & are unremarkable except as noted in Subjective Physical Exam Physical Exam: Right leg: Splint is clean dry and intact. Toes are mobile. Cap refill less than 3 seconds. Mild decrease in sensation in the toes likely secondary to the block. No calf tenderness. Constitutional: WD/WN, vitals as above Results & Data ([facility]) Vital Signs (Past 12 Hours) Vital Signs Temp Pulse Pulse Resp BP Pulse Ox 05/17/21 07:30 36.5 C 94 H 20 136/84 95 05/17/21 05:19 36.7 C 99 H 18 124/80 95 05/17/21 01:39 107 H 18 144/89 H 96 05/17/21 00:25 36.5 C 109 H 18 132/82 94 05/16/21 23:25 37 C 113 H 18 135/91 91 05/16/21 22:55 36.7 C 114 H 18 154/104 H 91 05/16/21 22:30 37 C 105 H 17 149/90 H 92 05/16/21 22:05 36.8 C 109 H 20 148/98 H 92 05/16/21 21:55 117 H 20 154/86 H 98 05/16/21 21:45 115 H 25 H 152/91 H 98 05/16/21 21:35 36.4 C L 126 H 23 150/98 H 99 (1) Fracture tibia/fibula Encounter type: initial encounter Fracture type: closed Laterality: right Qualified Code(s): S82.201A - Unspecified fracture of shaft of right tibia, initial encounter for closed fracture; S82.401A - Unspecified fracture of shaft of right fibula, initial encounter for closed fracture
[2021-05-17 07:56] LABS: Hematocrit (blood only) 40.5 % (42-52); Hemoglobin 13.8 g/dL (14.0-18.0); Mean Corpuscular Hemoglobin 33.1 pg (25-34); Mean Corpuscular Hgb Conc 34.1 g/dL (32-36); Mean Corpuscular Volume 97.1 fL (80-100); Mean Platelet Volume 9.6 fL (7.4-10.4); Platelet Count 371 K/uL (130-400); RDW Coefficient of Variation 12.6 % (11.5-14.5); RDW Standard Deviation 44.9 fL (36.4-46.3); Red Blood Count 4.17 M/uL (4.7-6.1); White Blood Count 14.89 K/uL (4.8-10.8)
[2021-05-17 08:17] LABS: BUN Creatinine Ratio 15.9 (10-20); Calcium 8.2 mg/dl (8.5-10.1); Creatinine Clr Calc Pharmacy 106.6 ml/min; Est GFR (African American) 94.4 ml/min; Est GFR (Non-African American) 81.4 ml/min; Potassium 4.1 mmol/L (3.5-5.1)
[2021-05-17] MEDS ORDERED: ASPIRIN 81 MG ECTAB PO SCH (09:00)
[2021-05-17] MEDS ORDERED: MULTIVITAMIN TAB PO SCH (09:00)
[2021-05-17] MEDS ORDERED: DOCUSATE SODIUM 100 MG CAP PO SCH (09:00)
[2021-05-17] MEDS: ACETAMINOPHEN 500 MG TAB PO SCH (09:12)
[2021-05-17] MEDS ORDERED: SENNA 8.6 MG TAB PO SCH (21:00)
--- NOTE | 2021-05-19 08:20 | Discharge Summary ---
Date of Service May 19, 2021 Admission HPI Per Admitting Provider 41-year-old male with no significant past medical history was in his usual state of health. 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 He slipped on the snow and slid under the bev and the fracture fell on his leg. He felt like snap and immediate onset of pain. He has brought to the emergency room by ambulance. X-rays demonstrated comminuted and displaced distal tibia and fibula fractures. He was placed in a posterior splint with a stirrup by the emergency room. We are asked to see the patient for surgical intervention. Patient denies headaches, sweats, fevers, chills, double vision, blurred vision, cough, sore throat, dysphagia, chest pain, sob, wheezing, n/v/d/c, numbness, tingling, fatigue, urinary symptoms, mood disorders. ROS positive for right ankle pain. Admission Exam Per Admitting Provider Constitutional: WD/WN, vitals as above Respiratory: normal respiratory effort; no respiratory distress Cardiovascular: Rate/Rhythm: regular rate and regular rhythm Musculoskeletal: Right ankle is in Ortho-Glass splints. Splint is clean dry and intact. Toes are mobile. Sensation distally neurovascular status intact. Cap refill less than 3 seconds distal pedal pulses palpable. No tenderness about the knee. Skin: no rashes, warm and dry Neurologic: normal touch/pain/proprioception Speech / Cognition: + abnormal speech Psychiatric: A+Ox3, euthymic affect Principal Diagnosis Right tib/fib fracture Discharge Exam Right leg: Splint is clean dry and intact. Toes are mobile. Cap refill less than 3 seconds. Mild decrease in sensation in the toes likely secondary to the block. No calf tenderness. Constitutional WD/WN, vitals as above Respiratory normal respiratory effort; no respiratory distress Cardiovascular Rate/Rhythm: regular rate and regular rhythm Skin no rashes, warm and dry Neurologic normal touch/pain/proprioception Speech / Cognition: + abnormal speech Psychiatric A+Ox3, euthymic affect Discharge Data Allergies Allergy/AdvReac Type Severity Reaction Status Date / Time No Known Allergies Allergy Unverified 05/16/21 14:02 Procedures Performed Operation Date: 05/16/21 18:00 Actual Procedures p Open Reduction Internal Fixation displaced comminuted distal tibia and fibula fractures(Right) - Robe A Barter, DO Ordered Studies 05/16/21 16:36 US - OR guided needle placemen Routine 05/16/21 18:00 FL ankle RT 2V Routine Hospital Course (1) Fracture tibia/fibula: Patient presented for same day admission following a crush injury to his right ankle after a refrigerator fell on his leg on 05/16/21. Patient suffered a tib/fib fracture requiring ORIF. Surgery was performed on day of admission on 05/16/21. He tolerated procedure well. The Patient had an uneventful hospital course. Post-operatively, his activity was progressed and well tolerated. He had a drop in hemoglobin to 13.8 acute blood loss anemia due to surgical loss/dilutional as well as bleeding from his fracture. He had a mild leukocytosis which is likely reactive. Pain controlled on oral medications. Please refer to daily progress notes and PT notes for complete details. After exam on 05/17/2021, patient was felt to be stable for discharge home. Patient will f/u in the office with Dr. Lowe in about 2 weeks for further evaluation including x-rays and incision check, sooner if having any issues or concerns. Postop day #1 right tib-fib fracture ORIF. -PT/OT: Nonweightbearing right lower extremity -DVT prophylaxis: SCDs, ASA 81 mg twice daily -Pain management as written -A.m. labs pending -Discharge planning: Plan on discharge home later today. Lab Results 05/16/21 05/16/21 05/16/21 Range/Units 13:28 13:30 13:30 WBC 13.41 H (4.8-10.8) K/uL RBC 5.00 (4.7-6.1) M/uL Hgb 16.6 (14.0-18.0) g/dL Hct 47.5 (42-52) % MCV 95.0 (80-100) fL MCH 33.2 (25-34) pg MCHC 34.9 (32-36) g/dL RDW Std Deviation 43.0 (36.4-46.3) fL RDW Coeff of [place] 12.5 (11.5-14.5) % Plt Count 419 H (130-400) K/uL MPV 9.7 (7.4-10.4) fL Immature Gran % (Auto) 0.2 % Neut % (Auto) 74.9 % Lymph % (Auto) 15.4 % [place] % (Auto) 7.9 % Eos % (Auto) 1.3 % Baso % (Auto) 0.3 % Neut # (Auto) 10.04 H (1.4-6.5) K/uL Lymph # (Auto) 2.06 (1.2-3.4) K/uL [place] # (Auto) 1.06 H (0.11-0.59) K/uL Eos # (Auto) 0.18 (0-0.5) K/uL Baso # (Auto) 0.04 (0-0.2) K/uL Immature Gran # (Auto) 0.03 H (0.00-0.02) K/uL Sodium 138 (136-145) mmol/L Potassium 4.3 (3.5-5.1) mmol/L Chloride 106 (98-107) mmol/L Carbon Dioxide 25 (21-32) mmol/L Anion Gap 7 (3-11) BUN 20 (6-23) mg/dl Creatinine 1.14 (0.6-1.4) mg/dl Est Cr Clr Drug Dosing 102.6 ml/min Est GFR ( Amer) 93.4 ml/min Est GFR (Non-Af Amer) 80.6 ml/min BUN/Creatinine Ratio 17.5 (10-20) Glucose 94 (70-99(Fasting)) mg/dl Calcium 9.1 (8.5-10.1) mg/dl SARS-CoV-2, RNA, NAAT NEGATIVE (NEGATIVE) 05/17/21 05/17/21 Range/Units 07:35 07:35 WBC 14.89 H (4.8-10.8) K/uL RBC 4.17 L (4.7-6.1) M/uL Hgb 13.8 L (14.0-18.0) g/dL Hct 40.5 L (42-52) % MCV 97.1 (80-100) fL MCH 33.1 (25-34) pg MCHC 34.1 (32-36) g/dL RDW Std Deviation 44.9 (36.4-46.3) fL RDW Coeff of [place] 12.6 (11.5-14.5) % Plt Count 371 (130-400) K/uL MPV 9.6 (7.4-10.4) fL Immature Gran % (Auto) % Neut % (Auto) % Lymph % (Auto) % [place] % (Auto) % Eos % (Auto) % Baso % (Auto) % Neut # (Auto) (1.4-6.5) K/uL Lymph # (Auto) (1.2-3.4) K/uL [place] # (Auto) (0.11-0.59) K/uL Eos # (Auto) (0-0.5) K/uL Baso # (Auto) (0-0.2) K/uL Immature Gran # (Auto) (0.00-0.02) K/uL Sodium 135 L (136-145) mmol/L Potassium 4.1 (3.5-5.1) mmol/L Chloride 105 (98-107) mmol/L Carbon Dioxide 24 (21-32) mmol/L Anion Gap 6 (3-11) BUN 18 (6-23) mg/dl Creatinine 1.13 (0.6-1.4) mg/dl Est Cr Clr Drug Dosing 106.6 ml/min Est GFR ( Amer) 94.4 ml/min Est GFR (Non-Af Amer) 81.4 ml/min BUN/Creatinine Ratio 15.9 (10-20) Glucose 129 H (70-99(Fasting)) mg/dl Calcium 8.2 L (8.5-10.1) mg/dl SARS-CoV-2, RNA, NAAT (NEGATIVE) Total Time Total Time Spent Total Time Spent (In Minutes): 20 Discharge Plan Discharge Items Patient Disposition: Home - Self-Care Reason For Visit: LEG INJURY Discharge Diagnosis: Right tib/fib fracture Activity: Per Instructions section Non-emergency contact: Surgeon Call non-emergency contact if: you have any medication questions, your pain is not controlled, your pain is concerning for you, you have a fever, your temperature is above 101, your wound has increased redness and your wound has increased drainage Follow-up/Referrals: Robe Lowe DO [Surgeon] - PCP,NO [Primary Care Provider] - Diet: Regular Addtl Attending Provider Instructions: ACTIVITY RECOMMENDATIONS: * You are to be non weight bearing on your right leg SPECIAL CARE INSTRUCTIONS: * Some drainage onto the dressing is normal and is no cause for alarm. * Some swelling is natural especially after walking. When resting, keep your foot elevated above the level of your heart. * Call the doctor's office at if you notice increased drainage, fever over 101 degrees F. or severe constant pain. BANDAGE: * Leave bandage/cast in place unless otherwise directed. * Keep bandage/cast dry at all times. FOLLOW UP VISIT: If appointment is not already scheduled: Please call [facility] to make a follow-up appointment after your surgery at with Dr. Lowe or his PA Stand-Alone Forms: My [facility] [email or web address], Smoking Cessation Medications and DC Order Prescriptions: New aspirin 81 mg Tablet,Delayed Release (Dr/Ec) 81 mg PO BID Qty: 60 RF: 0 oxycodone-acetaminophen [Endocet] 5-325 mg tablet 1 tab PO .Q4h-6h MDD 6 PRN (Reason: pain) Qty: 30 RF: 0 No Action No Known Home Medications RF: 0 Discharge Orders: Discharge Order (Routine); Ordered 05/17/21 Ordered By: Rony Soto/Other Patient Handouts: How Bones Heal, ED Fracture, Lower Extremity Admission Data Admit Date/Time: 05/16/21 21:36 Attending Provider: Robe Lowe Admit Provider: Robe Lowe Primary Care Provider: PCP,NO Other Interventions: Discharge Summary Assessment (RN) Last Done: 05/17/21 10:54
== END 2021-05-17 12:26 | disposition home or self-care (01) ==
LOC: ED 12:47 → OR 17:53 → 3N 17:53